=== PATIENT | male | born 1940 | race Caucasian/White ===

== ENCOUNTER 2016-08-26 14:42 | Emergency (ER) | payer OTHER ==
[~2016-08-26] VITALS: Ht 182.9 cm; Wt 101.2 kg
[~2016-08-26 14:42] MED LIST: ATOR10TA9 PO; BP MED; CLOP75TA22 PO; ESOM40CA PO; FENO48TA5 PO; FURO40TA6 PO; GLIP10TA20 PO; LEVO200T5 PO; METF-86 PO
[2016-08-26 15:49] LABS: HEMOGLOBIN 14.2 g/dL (13.7-18.0)
[2016-08-26 15:57] LABS: ASPARTATE AMINO TRANSFERASE 17 U/L (15-37); BLOOD UREA NITROGEN 14 mg/dL (7-18)
[2016-08-26 16:03] LABS: IS PT STATUS REG ER OR PRE ER? YES
[2016-08-26 17:06] LABS: RAPID INFLUENZA A Negative (Negative); RAPID INFLUENZA B Negative (Negative)
[2016-08-26] MEDS ORDERED: ALBUTEROL SULFATE 2.5 MG/3 ML NPPB ONE (17:30)
[2016-08-26] MEDS ORDERED: ALBUTEROL SULFATE 2.5 MG/3 ML ONE (17:36)
[2016-08-26 18:21] VITALS: BP 110/54
== END 2016-08-26 18:45 | disposition home or self-care (01) ==
LOC: ED 18:39
DX: J15.9 Unspecified bacterial pneumonia (principal)
CPT/HCPCS: 36415; 71020; 80053; 84484; 85025; 87400; 93005; 94640; J7613

== ENCOUNTER → 2017-06-10 | Outpatient (CLI) | payer OTHER ==
[~2017-06-10] MED LIST changes: -CLOP75TA22 PO; +CLOP75TA52 PO; +GLIP-164 PO; -GLIP10TA20 PO; +METF-162 PO; -METF-86 PO
== END ==
LOC: EDBD 14:49 → WOUND 14:49
PROVIDERS: ATTEND Podiatrist Foot & Ankle Surgery
DX: E11.621 Type 2 diabetes mellitus with foot ulcer (principal); L97.521 Non-pressure chronic ulcer of other part of left foot limited to breakdown of skin; E11.40 Type 2 diabetes mellitus with diabetic neuropathy, unspecified; I10 Essential (primary) hypertension; I25.2 Old myocardial infarction; Z87.891 Personal history of nicotine dependence; Z72.89 Other problems related to lifestyle
CPT/HCPCS: 97597; G0463; WOU0463

== ENCOUNTER → 2017-08-19 | Outpatient (CLI) | payer OTHER ==
[~2017-08-19] MED LIST changes: +REGADENOSON 0.4 MG/5 ML SYRINGE ONE
== END | disposition home or self-care (01) ==
LOC: RAD 12:02
PROVIDERS: ATTEND Internal Medicine Cardiovascular Disease
DX: I11.9 Hypertensive heart disease without heart failure (principal); I25.10 Atherosclerotic heart disease of native coronary artery without angina pectoris; Z95.5 Presence of coronary angioplasty implant and graft
CPT/HCPCS: 78452; 93017; 93306; J2785; A9502

== ENCOUNTER 2017-09-06 08:06 | Day surgery (SDC) | payer OTHER ==
[2017-09-03 10:47] VITALS: BP 141/74
[2017-09-03 11:22] LABS: ALBUMIN 3.7 g/dL (3.4-5.0); CALCIUM 8.8 mg/dL (8.5-10.1); CHLORIDE 109 mmol/L (98-107)
[2017-09-03 11:26] LABS: ALANINE AMINOTRANSFERASE 22 U/L (12-78); ALKALINE PHOSPHATASE 41 U/L (45-117); BILIRUBIN,TOTAL 0.5 mg/dL (0.2-1.0); CHOL/HDL RATIO 2.2; CHOLESTEROL, TOTAL 110 mg/dL (140-239); CREATININE 1.07 mg/dL (0.7-1.3); HDL CHOL % 46 % (26-37); HDL CHOLESTEROL (DIRECT) 51 mg/dL (40-60); LDL CHOLESTEROL,CALCULATED 36 mg/dL (54-169); LDL/HDL RATIO 0.7 (0.5-3.0); TRIGLYCERIDES 114 mg/dL (50-200); VLDL CHOLESTEROL 23 mg/dL (0-25)
[2017-09-03 11:30] LABS: ANION GAP 4 mmol/L (5-15)
[2017-09-03 12:17] LABS: HEMOGLOBIN A1C 8.2 % (4.2-6.3)
[~2017-09-06] VITALS: Ht 182.9 cm; Wt 100.0 kg
[~2017-09-06 08:06] MED LIST changes: +INSU100I34 INJ; +LEVO175T5 PO; +LISI5TAB7 PO; -REGADENOSON 0.4 MG/5 ML SYRINGE ONE
[2017-09-06] MEDS ORDERED: MIDAZOLAM 1 MG/ML, 2ML ONE (10:13)
[2017-09-06] MEDS ORDERED: FENTANYL PF 100 MCG/2ML ONE (10:13)
[2017-09-06] MEDS ORDERED: LIDOCAINE 2%, 2ML ONE (10:14)
[2017-09-06] MEDS ORDERED: HEPARIN 1,000 UNITS/ML, 10ML ONE (12:16)
[2017-09-06] MEDS ORDERED: SODIUM CHLORIDE 0.9% 1,000 ML IV SCH (14:23)
== END 2017-09-06 14:59 | disposition home or self-care (01) ==
LOC: CACL 08:06
PROVIDERS: ATTEND Internal Medicine Cardiovascular Disease
DX: I25.10 Atherosclerotic heart disease of native coronary artery without angina pectoris (principal); E03.9 Hypothyroidism, unspecified; E78.2 Mixed hyperlipidemia; I25.2 Old myocardial infarction; E11.9 Type 2 diabetes mellitus without complications; I10 Essential (primary) hypertension; Z98.61 Coronary angioplasty status
CPT/HCPCS: 36415; 80053; 80061; 83036; 93458; 93571; 99156; 99157; C1760; C1769; C1887; C1894; J1644; J2250; J3010; J3490; Q9967